=== PATIENT | male | born 1955 | race Caucasian/White ===

== ENCOUNTER 2020-02-15 10:51 | Emergency (ER) | payer MEDICARE ==
[~2020-02-15 10:51] MED LIST: Sodium Chloride 0.9% 500 ML BAG ONE
[2020-02-15] MEDS ORDERED: Ventolin HFA Inhaler 60 PUFF INHALER ONE ×3 (11:51→12:16)
--- NOTE | 2020-02-15 11:53 | RAD ---
Portable frontal chest radiograph: 02/15/2020 COMPARISON: None HISTORY: Cough with shortness of breath, COPD FINDINGS: Multiple dense nodules are noted, including at least 3-4 nodules on the right and one nodul e on the left measuring up to 7 mm suggesting calcified granulomata. This could be confirmed with follow-up CT examination. There is no pneumothorax, pleural fluid, focal consolidation, or alveolar e jm. IMPRESSION: No radiographic evidence of acute cardiopulmonary disease. Bilateral pulmonary nodules.
[2020-02-15 11:59] LABS: #Basophils 0.1 thou/uL (0.0-0.2); #Lymphocytes 0.5 thou/uL (1.20-3.40); #Monocytes 1.7 thou/uL (0.11-0.59); #Neutrophils 16.9 thou/uL (1.40-6.50); %Basophils 0.7 % (0.0-1.0); %Lymphocytes 2.5 % (21.0-51.0); %Neutrophils 87.8 % (42.0-75.0); Hemoglobin 13.9 g/dL (14.0-18.0); Mean Corpuscular HGB CONC 33.2 g/dL (32.0-36.0); Mean Corpuscular Hemoglobin 31.3 pg (27.0-31.0); Mean Corpuscular Volume 94.3 fL (78.0-98.0); Mean Platelet Volume 6.9 fL (7.4-10.4); Platelet Count 293 thou/uL (130-400); RBC Distribution Width 12.6 % (11.5-14.5); Red Blood Cell (RBC) Count 4.43 mill/uL (4.70-6.10); White Blood Cell (WBC) Count 19.3 thou/uL (4.8-10.8)
[2020-02-15 12:09] LABS: ALT (SGPT) 29 U/L (8-55); AST (SGOT) 24 U/L (5-34); Albumin 4.1 g/dL (3.4-4.8); Alcohol Less than 10 mg/dL (Less than 10); Alkaline Phosphatase 77 U/L (40-110); Anion Gap 16 mmol/L (10-20); BUN (Urea Nitrogen) 9 mg/dL (8.4-25.7); Bilirubin, Total 0.4 mg/dL (0.2-1.2); Calc. Creatinine Clearance 0 mL/min (70-130); Calcium 8.6 mg/dL (7.8-10.44); Carbon Dioxide 23 mmol/L (23-31); Chloride 89 mmol/L (98-107); Globulin 2.1 g/dL (2.4-3.5); Glucose 127 mg/dL (80-115); Lipase 10 U/L (8-78); Potassium 4.4 mmol/L (3.5-5.1); Protein, Total 6.2 g/dL (5.8-8.1); Sodium 124 mmol/L (136-145)
[2020-02-15] MEDS ORDERED: Albuterol Sulfate 2.5 mg/0.5 ml Neb ONE (12:16)
--- NOTE | 2020-02-15 12:53 | CT ---
CHEST CT WITHOUT CONTRAST: HISTORY: Worsening cough, shortness of breath. Elevated white blood cell count. COMPARISON: None. FINDINGS: Limited evaluation of the mediastinum by the lack of intravenous contrast. No mass, lymphadenopathy, or hematoma. Normal heart size. No significant pericardial fluid. Aorta: No aneurysm. No periaortic fat stranding. Subdiaphragmatic structures: No acute abnormality. Lower neck and axilla: No lymphadenopathy. Trachea and central bronchi: Patent. Pleural effusion: None. Pneumothorax: None. Right lung: No suspicious masses, consolidation or suspicious nodules. Calcified nodule in the right lower lobe measuring 0.8 cm. Partially calcified nodule in the superior segment of the right lower lobe measuring 0.8 cm. Partially calcified nodule in the right upper lobe measuring 0.9 cm. Smaller c alcified nodule in the right upper lobe measuring 0.6 cm Left lung: Calcified nodule in the left upper lobe measuring 1 cm. Second calcified nodule in the lef t upper lobe measures 0.8 cm. Calcified right infrahilar lymph nodes are noted. No lytic or blastic lesions within the osseous structures. IMPRESSION: Multiple calcified nodules suggesting sequelae of granulomatous disease. No suspicious masses or cons olidation in the lung parenchyma. Transcribed Date/Time: 02/15/2020 1:25 PM
[2020-02-15] MEDS ORDERED: Lorazepam 2 MG/ML VIAL ONE (13:43)
[2020-02-15] MEDS ORDERED: Thiamine HCl 200 MG/2 ML VIAL ONE (13:44)
[2020-02-15] MEDS ORDERED: Pantoprazole 40 MG VIAL ONE (13:44)
[2020-02-15] MEDS ORDERED: Azithromycin 500 MG VIAL ONE (13:44)
[2020-02-15] MEDS ORDERED: Dexamethasone 10 MG/ML VIAL ONE (13:44)
== END 2020-02-15 16:25 | disposition short-term general hospital (02) ==
LOC: MADERS 10:51
DX: J44.1 Chronic obstructive pulmonary disease with (acute) exacerbation (principal); F10.239 Alcohol dependence with withdrawal, unspecified; E87.1 Hypo-osmolality and hyponatremia; F17.210 Nicotine dependence, cigarettes, uncomplicated; Y90.0 Blood alcohol level of less than 20 mg/100 ml; Z79.899 Other long term (current) drug therapy; Z79.51 Long term (current) use of inhaled steroids
CPT/HCPCS: 71045; 71250; 80053; 80307; 83605; 83690; 83880; 84484; 85025; 93005; 96361; 96365; 96367; 96375; C9113; J0456; J1100; J2060; J3411; J7030; J7050; J7611